=== PATIENT | male | born 1970 | race Caucasian/White ===

== ENCOUNTER 2016-07-14 13:15 | Emergency (ER) | payer BC ==
[2016-07-14] MEDS ORDERED: METHYLPRED SOD SUCC 125 MG/2 ML VIAL ONE (14:17)
[2016-07-14] MEDS ORDERED: SODIUM CHLORIDE 0.9% 1,000 ML ONE (14:58)
== END 2016-07-14 15:59 | disposition home or self-care (01) ==
LOC: ER 13:35
DX: R07.89 Other chest pain (principal); J20.9 Acute bronchitis, unspecified; R09.1 Pleurisy; Z79.899 Other long term (current) drug therapy
CPT/HCPCS: 36415; 71020; 80053; 82553; 83880; 84484; 85025; 85379; 93005; 94640; 96374